=== PATIENT | female | born 1965 | race Hispanic/Latino ===

== ENCOUNTER 2021-04-07 12:53 | Emergency (ER) | payer SELFPAY ==
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
== END 2021-04-07 18:40 ==
LOC: ED 12:53
DX: I46.9 Cardiac arrest, cause unspecified (principal)
CPT/HCPCS: 92950; 99285